=== PATIENT | female | born 1990 | race Caucasian/White ===

== ENCOUNTER 2018-08-13 10:09 | Emergency (ER) | payer MEDICAID ==
[~2018-08-13] VITALS: Ht 170.2 cm; Wt 95.8 kg
[2018-08-13 10:20] VITALS: BP 124/74
[2018-08-13 10:53] LABS: MEAN CORPUSCULAR VOLUME 91.8 fL (80-100); RED BLOOD COUNT 4.59 x10^6/uL (3.82-5.3)
[2018-08-13 10:54] LABS: BASOPHILS # (AUTO) 0.04 x10^3/uL (0-0.1); BASOPHILS % (AUTO) 0 % (0-1); EOSINOPHILS # (AUTO) 0.29 x10^3/uL (0-0.4); EOSINOPHILS % (AUTO) 3 % (1-7); LYMPHOCYTES # (AUTO) 2.27 x10^3/uL (1-3.4); LYMPHOCYTES % (AUTO) 26 % (22-44); MD NO; MEAN CORPUSCULAR HGB CONC 34.9 g/dL (32.4-35.8); MEAN PLATELET VOLUME 9.3 fL (7.4-10.4); MONOCYTES # (AUTO) 0.57 x10^3/uL (0.2-0.8); MONOCYTES % (AUTO) 7 % (2-9); NEUTROPHILS # (AUTO) 5.64 x10^3/uL (1.8-6.8); NEUTROPHILS % (AUTO) 64 % (42-75); PLATELET COUNT 275 x10^3/uL (130-400); RED CELL DISTRIBUTION WIDTH 13.8 % (9.6-15.2)
[2018-08-13 11:00] LABS: ALBUMIN 3.3 g/dL (3.4-5.0); ANION GAP 8 mmol/L (5-15); CALCIUM 8.6 mg/dL (8.5-10.1); CHLORIDE 113 mmol/L (98-107)
[2018-08-13] MEDS ORDERED: SODIUM CHLORIDE 0.9% 1,000ML IVBOLUS ONE (11:00)
[2018-08-13] MEDS ORDERED: KETOROLAC 30 MG/1 ML IVPush ONE (11:00)
[2018-08-13] MEDS ORDERED: SODIUM CHLORIDE FLUSH 10ML SYR IVF ONE (11:00)
[2018-08-13] MEDS ORDERED: PROCHLORPERAZINE 5 MG/ML, 2ML IVPush ONE (11:00)
[2018-08-13] MEDS ORDERED: DIPHENHYDRAMINE 50 MG/ML, 1ML IVPush ONE (11:00)
[2018-08-13] MEDS ORDERED: KETOROLAC 30 MG/1 ML ONE (11:19)
[2018-08-13] MEDS ORDERED: KETOROLAC 30 MG/1 ML IM ONE (11:30)
== END 2018-08-13 11:30 | disposition left against medical advice (07) ==
LOC: ED 11:24
DX: R51 Headache (principal); J45.909 Unspecified asthma, uncomplicated
CPT/HCPCS: 36415; 80048; 82040; 84703; 85025; 99284

== ENCOUNTER 2019-06-01 15:59 | Emergency (ER) | payer MEDICAID ==
[~2019-06-01] VITALS: Ht 170.2 cm; Wt 99.8 kg
[2019-06-01 16:12] VITALS: BP 121/85
--- NOTE | 2019-06-01 16:53 | NUR ---
CLOSING COORDINATOR: PT AMBULATED INDEPENDENTLY TO ED ROOM 24 IN NAD
[2019-06-01] MEDS ORDERED: DIPHENHYDRAMINE 50 MG/ML, 1ML ONE (17:07)
[2019-06-01] MEDS ORDERED: METOCLOPRAMIDE 5 MG/ML, 2ML ONE (17:07)
[2019-06-01] MEDS ORDERED: KETOROLAC 30 MG/1 ML ONE (17:07)
[2019-06-01] MEDS ORDERED: KETOROLAC 30 MG/1 ML IVPush ONE (17:30)
[2019-06-01] MEDS ORDERED: DIPHENHYDRAMINE 50 MG/ML, 1ML IVPush ONE (17:30)
[2019-06-01] MEDS ORDERED: METOCLOPRAMIDE 5 MG/ML, 2ML IVPush ONE (17:30)
--- NOTE | 2019-06-01 18:09 | NUR ---
PT IN ROOM RESTING. STATES POSITIVE RELIEF OF MIGRAINE.
== END 2019-06-01 18:48 | disposition home or self-care (01) ==
LOC: ED 18:42
DX: G43.901 Migraine, unspecified, not intractable, with status migrainosus (principal)
CPT/HCPCS: 96374; 96375; 99283; J1200; J1885; J2765